=== PATIENT | female | born 1935 | race Caucasian/White ===

== ENCOUNTER 2021-10-19 11:39 | Inpatient (IN) | payer MEDICARE, BC ==
[2021-10-19] MEDS ORDERED: Fluticasone Propionate Nasal Spray 16 GM Bottle NASBOTH PRN (14:54)
[2021-10-19] MEDS ORDERED: Nitroglycerin 0.4 MG Tab.SL SL PRN (14:54)
[2021-10-19] MEDS: Digoxin 125 MCG Tab PO SCH (16:30)
[2021-10-19] MEDS: traMADol 50 MG Tab PO PRN (16:31)
[2021-10-19] MEDS: Gabapentin 300 MG Cap PO SCH ×2 (16:31→21:19)
--- NOTE | 2021-10-19 18:00 | PCM.HP.2 ---
H&P History of Present Illness - General Date of Service: 10/19/21 Admit Problem/Dx: Admission Diagnosis/Problem Admission Diagnosis/Problem Weakness Source of Information: Patient, Old Records - History of Present Illness Initial Comments - Free Text/Narative: Veronica is an 86-year-old female admitted a week ago at [facility] for CHF exacerbation, atrial fibrillation, and a NSTEMI. She also had lower extremity cellulitis,hyponatremia and SHAYAN. After treatment, she's developed physical deconditioning and is being admitted today to swing bed for rehabilitation/strengthening. She complains of aches and pains in the bones, weakness, fatigue but denies any chest pain. Secondary diagnoses include COPD, bradycardia, weight loss and presence of a Watchman left atrial device. Her creatinine on discharge was 2.47.Echo showed EF of 20%. Veronica lives at home with her . LEFT LOWER LEG Pain Score (Numeric/FACES): 8 - Related Data Allergies/Adverse Reactions: Allergies Allergy/AdvReac Type Severity Reaction Status Date / Time No Known Allergies Allergy Verified 10/19/21 15:50 Home Medications: Home Meds Acetaminophen [Tylenol Arthritis] 650 mg PO Q8H PRN 10/19/21 [History] Aspirin [[place] Aspirin] 81 mg PO DAILY 10/19/21 [History] Clobetasol [Temovate 0.05% Oint] 1 applic TOP BID 10/19/21 [History] Clopidogrel [Plavix] 75 mg PO DAILY 10/19/21 [History] Digoxin 62.5 mcg PO DAILY@1600 10/19/21 [History] Fluticasone Propionate [Flonase] 1 spray NASBOTH DAILY PRN 10/19/21 [History] Fluticasone/Salmeterol [Advair 500-50] 1 puff IH BID 10/19/21 [History] Gabapentin [Neurontin] 300 mg PO TID 10/19/21 [History] Levothyroxine 37.5 mcg PO DAILY@0600 10/19/21 [History] Metoprolol Succinate [Toprol XL] 12.5 mg PO DAILY 10/19/21 [History] Nitroglycerin 0.4 mg SL Q5M PRN 10/19/21 [History] Pantoprazole Sodium [Protonix] 40 mg PO DAILY 10/19/21 [History] Propylene Glycol/PEG 400/Pf [Systane 0.3-0.4% Eye Drop] 1 drop EYEBOTH BID 10/19/21 [History] Torsemide 20 mg PO DAILY 10/19/21 [History] Zolpidem [Ambien] 5 mg PO BEDTIME 10/19/21 [History] atorvaSTATin Calcium [Lipitor] 60 mg PO DAILY 10/19/21 [History] traMADol [Ultram] 50 mg PO BID PRN 10/19/21 [History] Past Medical History HEENT History: Reports: Cataract, Hard of Hearing, Impaired Vision, Sinusitis Cardiovascular History: Reports: Afib, Angina, Heart Failure, High Cholesterol, Hypertension, MD, SOB on Exertion, Stents, Syncope Respiratory History: Reports: Bronchitis, Recurrent, SOB, Other (See Below) Other Respiratory History: PT USES INHALERS AT HOME. Gastrointestinal History: Reports: Colon Polyp, GERD, Hemorrhoids Genitourinary History: Reports: Urinary Incontinence DRAFTER CIVIL (CAD) History: Reports: Musculoskeletal History: Reports: Arthritis, Back Pain, Chronic, Osteoarthritis, Other (See Below) Other Musculoskeletal History: COMPRESSION FRACTURE OF A VERTBREA Neurological History: Reports: Other (See Below) Other Neuro History: PT VOICED TREMORS IN BOTH HANDS AT TIMES. HAS HAD FOR YEARS. Hematologic History: Reports: Anemia, Blood Transfusion(s) - Infectious Disease History Infectious Disease History: Reports: Chicken Pox, Measles, Mumps, Shingles - Past Surgical History HEENT Surgical History: Reports: Cataract Surgery, Eye Surgery, Oral Surgery, Other (See Below) Other HEENT Surgeries/Procedures: BOTH EYES DONE WITH CATARACTS. Cardiovascular Surgical History: Reports: Coronary Artery Stent Other Cardiovascular Surgeries/Procedures: CURRENT NSTEMI 10/08/2021 Respiratory Surgical History: Reports: None GI Surgical History: Reports: Appendectomy, Colonoscopy, EGD Female Surgical History: Reports: D&C, Hysterectomy Neurological Surgical History: Reports: None Musculoskeletal Surgical History: Reports: Other (See Below) Other Musculoskeletal Surgeries/Procedures:: LARGE JOINTS OF BOTH THUMBS SURGERY DONE. WEAR THE GLOVES FOR THIS REASON. Social & Family History - Family History Family Medical History: Unobtainable - Tobacco Use Tobacco Use Status *Q: Never Tobacco User Second Hand Smoke Exposure: No - Caffeine Use Caffeine Use: Reports: Coffee, Soda - Recreational Drug Use Recreational Drug Use: No H&P Review of Systems - Review of Systems: Review Of Systems: Comprehensive ROS is negative, except as noted in HPI. Exam - Exam Exam: See Below - Vital Signs Vital Signs: Last Vital Signs Temp 97.5 F 10/19/21 14:52 Pulse 52 L 10/19/21 16:30 Resp 16 10/19/21 14:52 BP 134/52 L 10/19/21 14:52 Pulse Ox 91 L 10/19/21 14:52 Weight: 61.689 kg - Exam General: Alert, Oriented, 4 HEENT: PERRLA, Hearing Intact, Mucosa Moist & [place], Nares Patent, Normal Nasal Septum, Posterior Pharynx Clear, Conjunctiva Clear, EOMI, EACs Clear, TMs Clear Neck: Supple, Trachea Midline, 2 Lungs: Clear to Auscultation, Normal Respiratory Effort Cardiovascular: Irregular Rhythm GI/Abdominal Exam: Normal Bowel Sounds, Soft, Non-Tender, No Organomegaly, No Distention, No Abnormal Bruit, No Mass, Pelvis Stable (Female) Exam: Deferred Rectal (Female) Exam: Deferred Back Exam: Normal Inspection, Full Range of Motion, NT Extremities: Redness Skin: Warm, Dry, Intact Neurological: Cranial Nerves Intact, Reflexes Equal Bilateral Neuro Extensive - Mental Status: Alert, Oriented x3, Normal Mood/Affect, Normal Cognition Neuro Extensive - Motor, Sensory, Reflexes: CN II-XII Intact, Normal Gait, Normal Reflexes Psychiatric: Alert, Normal Affect, Normal Mood Sepsis Event Note - Evaluation Sepsis Screening Result: No Definite Risk - Focused Exam Vital Signs: Vital Signs Temp Pulse Pulse Resp BP Pulse Ox 10/19/21 16:30 52 L 10/19/21 14:52 97.5 F 61 16 134/52 L 91 L - Problem List (1) Physical deconditioning SNOMED Code(s): 10398397786636 ICD Code: R53.81 - OTHER MALAISE Status: Acute Current Visit: Yes (2) Afib SNOMED Code(s): 50019760 ICD Code: I48.91 - UNSPECIFIED ATRIAL FIBRILLATION Status: Acute Current Visit: Yes (3) Presence of Watchman left atrial appendage closure device SNOMED Code(s): 700223381, 552320058 ICD Code: Z95.818 - PRESENCE OF OTHER CARDIAC IMPLANTS AND GRAFTS Status: Acute Current Visit: Yes (4) Lower extremity ulceration SNOMED Code(s): 54617999, 691291763 ICD Code: L97.909 - NON-PRS CHRONIC ULC UNSP PRT OF UNSP LOW LEG W UNSP SEVERITY Status: Acute Current Visit: Yes (5) CHF (congestive heart failure) SNOMED Code(s): 39720640 ICD Code: I50.9 - HEART FAILURE, UNSPECIFIED Status: Acute Current Visit: Yes (6) CAD (coronary artery disease) SNOMED Code(s): 01008707 ICD Code: I25.10 - ATHSCL HEART DISEASE OF [place] CORONARY ARTERY W/O ANG PCTRS Status: Acute Current Visit: Yes (7) CKD (chronic kidney disease) SNOMED Code(s): 564149528 ICD Code: N18.9 - CHRONIC KIDNEY DISEASE, UNSPECIFIED Status: Acute Cu rrent Visit: Yes Problem List Initiated/Reviewed/Updated: Yes Orders Last 24hrs: Active Orders 24 hr Category Date Time Status Patient Status [ADT] Routine ADT 10/19/21 14:52 Active Height and Weight [RC] .TU06 Care 10/19/21 14:52 Active Oxygen Therapy [RC] PRN Care 10/19/21 14:52 Active Up With Assistance [RC] ASDIRECTED Care 10/19/21 14:51 Active Vital Signs [RC] PER UNIT ROUTINE Care 10/19/21 14:52 Active OT Evaluation and Treatment [CONS] Routine Cons 10/19/21 14:51 Active PT Evaluation and Treatment [CONS] Routine Cons 10/19/21 14:51 Active Heart Healthy Diet [DIET] Diet 10/19/21 Dinner Active Acetaminophen [Tylenol Arthritis Pain] Med 10/19/21 14:54 Active 650 mg PO Q8H PRN Aspirin Med 10/20/21 09:00 Active 81 mg PO DAILY Clobetasol [Temovate 0.05% Oint] Med 10/19/21 21:00 Active 0 gm TOP BID Clopidogrel [Plavix] Med 10/20/21 09:00 Active 75 mg PO DAILY Digoxin [Lanoxin] Med 10/19/21 16:00 Active 62.5 mcg PO DAILY@1600 Fluticasone Propionate [Flonase] Med 10/19/21 14:54 Active 0 gm NASBOTH DAILY PRN Gabapentin [Neurontin] Med 10/19/21 15:00 Active 300 mg PO TID Levothyroxine Med 10/20/21 06:00 Active 37.5 mcg PO DAILY@0600 Metoprolol Succinate [Toprol XL] Med 10/20/21 09:00 Active 12.5 mg PO DAILY Mometasone/Formoterol [Dulera 200-5 MCG] Med 10/20/21 09:00 Active 2 puff IH BID Nitroglycerin [Nitrostat] Med 10/19/21 14:54 Active 0.4 mg SL Q5M PRN PEG 400/Propylene Glycol [Systane Lubricant] Med 10/19/21 21:00 Active 0 ml EYEBOTH BID Pantoprazole [ProTONIX] Med 10/20/21 06:00 Active 40 mg PO DAILY@0600 Torsemide [Demadex] Med 10/20/21 09:00 Active 20 mg PO DAILY Zolpidem [Ambien] Med 10/19/21 21:00 Active 5 mg PO BEDTIME atorvaSTATin [Lipitor] Med 10/20/21 09:00 Active 60 mg PO DAILY traMADol [Ultram] Med 10/19/21 14:54 Active 50 mg PO BID PRN Resuscitation Status Routine Resus Stat 10/19/21 14:51 Ordered Medication Orders Acetaminophen (Acetaminophen 650 Mg Tab.Er) 650 mg PO Q8H PRN PRN Reason: Pain Aspirin (Aspirin 81 Mg Tab.Chew) 81 mg PO DAILY [facility] Atorvastatin Calcium (Atorvastatin 20 Mg Tab) 60 mg PO DAILY [facility] Clobetasol Propionate (Clobetasol 0.05% Ointment 15 Gm Tube) 0 gm TOP BID [facility] Clopidogrel Bisulfate (Clopidogrel 75 Mg Tab) 75 mg PO DAILY [facility] Digoxin (Digoxin 125 Mcg Tab) 62.5 mcg PO DAILY@1600 [facility] Last Admin: 10/19/21 16:30 Dose: 62.5 mcg Documented by: TALI Fluticasone Propionate (Fluticasone Propionate Nasal [place] 16 Gm Bottle) 0 gm NASBOTH DAILY PRN PRN Reason: Congestion Gabapentin (Gabapentin 300 Mg Cap) 300 mg PO TID [facility] Last Admin: 10/19/21 16:31 Dose: 300 mg Documented by: TALI Levothyroxine Sodium (Levothyroxine 75 Mcg Tab) 37.5 mcg PO DAILY@0600 [facility] Metoprolol Succinate (Metoprolol Succinate 25 Mg Tab.Er) 12.5 mg PO DAILY [facility] Mometasone Furoate/Formoterol Fumar (Formoterol/Mometasone 200-5 Mcg 8.8 Gm Inhaler) 2 puff IH BID [facility] Nitroglycerin (Nitroglycerin 0.4 Mg Tab.Sl) 0.4 mg SL Q5M PRN PRN Reason: Chest Pain Pantoprazole Sodium (Pantoprazole 40 Mg Tab.Cr) 40 mg PO DAILY@0600 [facility] Propylene Glycol (Peg 400/Propylene Glycol Ophth Soln 15 Ml Bottle) 0 ml EYEBOTH BID [facility] Torsemide (Torsemide 20 Mg Tab) 20 mg PO DAILY [facility] Tramadol HCl (Tramadol 50 Mg Tab) 50 mg PO BID PRN PRN Reason: severe pain Last Admin: 10/19/21 16:31 Dose: 50 mg Documented by: TALI Zolpidem Tartrate (Zolpidem 5 Mg Tab) 5 mg PO BEDTIME [facility] Assessment/Plan Comment:: Admit to swing bed with routine orders. Continue current medication regimen as dictated by discharge summary from [facility]. Consult physical and occupational therapy, with the goal for her to return to community based living.
[2021-10-19] MEDS ORDERED: Arformoterol 15 MCG/2 ML Neb Soln INH ONE (21:00)
[2021-10-19] MEDS ORDERED: Budesonide 0.5 MG/2 ML Neb Susp INH ONE (21:00)
[2021-10-19] MEDS: Clobetasol 0.05% Ointment 15 GM Tube TOP SCH (21:17)
[2021-10-19] MEDS: PEG 400/Propylene Glycol Ophth Soln 15 ML Bottle EYEBOTH SCH (21:18)
[2021-10-19] MEDS: Zolpidem 5 MG Tab PO SCH (21:27)
[2021-10-20] MEDS: Pantoprazole 40 MG Tab.CR PO SCH (05:59)
[2021-10-20] MEDS: Levothyroxine 75 MCG Tab PO SCH (06:03)
[2021-10-20] MEDS: traMADol 50 MG Tab PO PRN ×2 (06:11→14:51)
[2021-10-20] MEDS: Aspirin 81 MG Tab.Chew PO SCH (08:00)
[2021-10-20] MEDS: PEG 400/Propylene Glycol Ophth Soln 15 ML Bottle EYEBOTH SCH ×2 (08:00→20:38)
[2021-10-20] MEDS: Metoprolol Succinate 25 MG Tab.ER PO SCH (08:01)
[2021-10-20] MEDS: Torsemide 20 MG Tab PO SCH (08:01)
[2021-10-20] MEDS: atorvaSTATin 20 MG Tab PO SCH (08:02)
[2021-10-20] MEDS: Clobetasol 0.05% Ointment 15 GM Tube TOP SCH ×2 (08:03→20:39)
[2021-10-20] MEDS: Clopidogrel 75 MG Tab PO SCH (08:03)
[2021-10-20] MEDS: Gabapentin 300 MG Cap PO SCH ×3 (08:50→20:48)
[2021-10-20] MEDS: Formoterol/Mometasone 200-5 MCG 8.8 GM Inhaler IH SCH ×2 (10:59→20:35)
[2021-10-20] MEDS: Acetaminophen 650 MG Tab.ER PO PRN (11:03)
[2021-10-20] MEDS: Digoxin 125 MCG Tab PO SCH (18:34)
[2021-10-20] MEDS: Zolpidem 5 MG Tab PO SCH (20:49)
[2021-10-21] MEDS: Levothyroxine 75 MCG Tab PO SCH (05:16)
[2021-10-21] MEDS: Pantoprazole 40 MG Tab.CR PO SCH (05:16)
[2021-10-21] MEDS: Clopidogrel 75 MG Tab PO SCH (09:23)
[2021-10-21] MEDS: Formoterol/Mometasone 200-5 MCG 8.8 GM Inhaler IH SCH ×2 (09:23→20:48)
[2021-10-21] MEDS: Aspirin 81 MG Tab.Chew PO SCH (09:23)
[2021-10-21] MEDS: Gabapentin 300 MG Cap PO SCH ×3 (09:23→20:48)
[2021-10-21] MEDS: Clobetasol 0.05% Ointment 15 GM Tube TOP SCH ×2 (09:23→20:48)
[2021-10-21] MEDS: atorvaSTATin 20 MG Tab PO SCH (09:23)
[2021-10-21] MEDS: PEG 400/Propylene Glycol Ophth Soln 15 ML Bottle EYEBOTH SCH ×2 (09:23→20:48)
[2021-10-21] MEDS: Torsemide 20 MG Tab PO SCH (09:23)
[2021-10-21] MEDS: Metoprolol Succinate 25 MG Tab.ER PO SCH (09:24)
[2021-10-21] MEDS: Digoxin 125 MCG Tab PO SCH (16:53)
[2021-10-21] MEDS: Zolpidem 5 MG Tab PO SCH (20:48)
[2021-10-22] MEDS: Pantoprazole 40 MG Tab.CR PO SCH (05:30)
[2021-10-22] MEDS: Levothyroxine 75 MCG Tab PO SCH (05:30)
[2021-10-22] MEDS: atorvaSTATin 20 MG Tab PO SCH (09:02)
[2021-10-22] MEDS: Metoprolol Succinate 25 MG Tab.ER PO SCH (09:19)
[2021-10-22] MEDS: Torsemide 20 MG Tab PO SCH (09:20)
[2021-10-22] MEDS: Aspirin 81 MG Tab.Chew PO SCH (09:20)
[2021-10-22] MEDS: Clopidogrel 75 MG Tab PO SCH (09:21)
[2021-10-22] MEDS: Formoterol/Mometasone 200-5 MCG 8.8 GM Inhaler IH SCH ×2 (09:22→20:44)
[2021-10-22] MEDS: Clobetasol 0.05% Ointment 15 GM Tube TOP SCH ×2 (09:22→20:44)
[2021-10-22] MEDS: PEG 400/Propylene Glycol Ophth Soln 15 ML Bottle EYEBOTH SCH ×2 (09:22→20:45)
[2021-10-22] MEDS: Gabapentin 300 MG Cap PO SCH ×3 (09:25→20:44)
[2021-10-22] MEDS: Acetaminophen 650 MG Tab.ER PO PRN ×2 (14:55→23:47)
[2021-10-22] MEDS: Digoxin 125 MCG Tab PO SCH (16:37)
[2021-10-22] MEDS: Zolpidem 5 MG Tab PO SCH (20:44)
[2021-10-23] MEDS: Levothyroxine 75 MCG Tab PO SCH (05:30)
[2021-10-23] MEDS: Pantoprazole 40 MG Tab.CR PO SCH (05:30)
[2021-10-23] MEDS: traMADol 50 MG Tab PO PRN (05:34)
[2021-10-23] MEDS: Torsemide 20 MG Tab PO SCH (09:25)
[2021-10-23] MEDS: Formoterol/Mometasone 200-5 MCG 8.8 GM Inhaler IH SCH ×2 (09:25→21:31)
[2021-10-23] MEDS: Aspirin 81 MG Tab.Chew PO SCH (09:25)
[2021-10-23] MEDS: atorvaSTATin 20 MG Tab PO SCH (09:26)
[2021-10-23] MEDS: Clopidogrel 75 MG Tab PO SCH (09:26)
[2021-10-23] MEDS: PEG 400/Propylene Glycol Ophth Soln 15 ML Bottle EYEBOTH SCH ×2 (09:27→21:31)
[2021-10-23] MEDS: Clobetasol 0.05% Ointment 15 GM Tube TOP SCH ×2 (09:28→20:28)
[2021-10-23] MEDS: Gabapentin 300 MG Cap PO SCH ×3 (09:42→21:32)
[2021-10-23] MEDS: Metoprolol Succinate 25 MG Tab.ER PO SCH (10:03)
[2021-10-23] MEDS: Digoxin 125 MCG Tab PO SCH (16:57)
[2021-10-23] MEDS: Zolpidem 5 MG Tab PO SCH (21:31)
[2021-10-23] MEDS: Acetaminophen 650 MG Tab.ER PO PRN (21:32)
[2021-10-24] MEDS: Pantoprazole 40 MG Tab.CR PO SCH (05:23)
[2021-10-24] MEDS: Levothyroxine 75 MCG Tab PO SCH (05:23)
--- NOTE | 2021-10-24 08:34 | PCM.PN ---
- General Info Date of Service: 10/24/21 Admission Dx/Problem (Free Text): Patient without complaints. She denies fevers, chills, chest pain. Has a little bit of leg swelling which is getting better. - Patient Data Vitals - Most Recent: Last Vital Signs Temp 98 F 10/23/21 08:00 Pulse 64 10/23/21 16:57 Resp 17 10/23/21 08:00 BP 114/48 L 10/23/21 08:00 Pulse Ox 94 L 10/23/21 08:00 Weight - Most Recent: 140 lb 6.4 oz Med Orders - Current: Current Medications Acetaminophen (Acetaminophen 650 Mg Tab.Er) 650 mg PO Q8H PRN PRN Reason: Pain Last Admin: 10/23/21 21:32 Dose: 650 mg Documented by: Aspirin (Aspirin 81 Mg Tab.Chew) 81 mg PO DAILY [facility] Last Admin: 10/23/21 09:25 Dose: 81 mg Documented by: Atorvastatin Calcium (Atorvastatin 20 Mg Tab) 60 mg PO DAILY [facility] Last Admin: 10/23/21 09:26 Dose: 60 mg Documented by: Clobetasol Propionate (Clobetasol 0.05% Ointment 15 Gm Tube) 0 gm TOP BID [facility] Last Admin: 10/23/21 20:28 Dose: 1 applic Documented by: Clopidogrel Bisulfate (Clopidogrel 75 Mg Tab) 75 mg PO DAILY [facility] Last Admin: 10/23/21 09:26 Dose: 75 mg Documented by: Digoxin (Digoxin 125 Mcg Tab) 62.5 mcg PO DAILY@1600 [facility] Last Admin: 10/23/21 16:57 Dose: 62.5 mcg Documented by: Fluticasone Propionate (Fluticasone Propionate Nasal [place] 16 Gm Bottle) 0 gm NASBOTH DAILY PRN PRN Reason: Congestion Gabapentin (Gabapentin 300 Mg Cap) 300 mg PO TID [facility] Last Admin: 10/23/21 21:32 Dose: 300 mg Documented by: Levothyroxine Sodium (Levothyroxine 75 Mcg Tab) 37.5 mcg PO DAILY@0600 [facility] Last Admin: 10/24/21 05:23 Dose: 37.5 mcg Documented by: Metoprolol Succinate (Metoprolol Succinate 25 Mg Tab.Er) 12.5 mg PO DAILY [facility] Last Admin: 10/23/21 10:03 Dose: Not Given Documented by: Mometasone Furoate/Formoterol Fumar (Formoterol/Mometasone 200-5 Mcg 8.8 Gm Inhaler) 2 puff IH BID [facility] Last Admin: 10/23/21 21:31 Dose: 2 puff Documented by: Nitroglycerin (Nitroglycerin 0.4 Mg Tab.Sl) 0.4 mg SL Q5M PRN PRN Reason: Chest Pain Pantoprazole Sodium (Pantoprazole 40 Mg Tab.Cr) 40 mg PO DAILY@0600 [facility] Last Admin: 10/24/21 05:23 Dose: 40 mg Documented by: Propylene Glycol (Peg 400/Propylene Glycol Ophth Soln 15 Ml Bottle) 0 ml EYEBOTH BID [facility] Last Admin: 10/23/21 21:31 Dose: 1 drop Documented by: Torsemide (Torsemide 20 Mg Tab) 20 mg PO DAILY [facility] Last Admin: 10/23/21 09:25 Dose: 20 mg Documented by: Tramadol HCl (Tramadol 50 Mg Tab) 50 mg PO BID PRN PRN Reason: severe pain Last Admin: 10/23/21 05:34 Dose: 50 mg Documented by: Zolpidem Tartrate (Zolpidem 5 Mg Tab) 5 mg PO BEDTIME [facility] Last Admin: 10/23/21 21:31 Dose: 5 mg Documented by: - Exam General: Alert, Oriented, Cooperative Neck: Supple Lungs: Clear to Auscultation, Normal Respiratory Effort Cardiovascular: Regular Rate, Regular Rhythm, Murmurs Extremities: Pedal Edema Sepsis Event Note - Evaluation Sepsis Screening Result: No Definite Risk - Problem List & Annotations (1) Afib SNOMED Code(s): 81563804 Code(s): I48.91 - UNSPECIFIED ATRIAL FIBRILLATION Status: Acute Current Visit: Yes (2) CAD (coronary artery disease) SNOMED Code(s): 17852150 Code(s): I25.10 - ATHSCL HEART DISEASE OF [place] CORONARY ARTERY W/O ANG PCTRS Status: Acute Current Visit: Yes (3) CHF (congestive heart failure) SNOMED Code(s): 56664485 Code(s): I50.9 - HEART FAILURE, UNSPECIFIED Status: Acute Current Visit: Yes (4) CKD (chronic kidney disease) SNOMED Code(s): 808517594 Code(s): N18.9 - CHRONIC KIDNEY DISEASE, UNSPECIFIED Status: Acute Current Visit: Yes (5) Lower extremity ulceration SNOMED Code(s): 68833180, 444287188 Code(s): L97.909 - NON-PRS CHRONIC ULC UNSP PRT OF UNSP LOW LEG W UNSP SEVERITY Status: Acute Current Visit: Yes (6) Physical deconditioning SNOMED Code(s): 74501903563479 Code(s): R53.81 - OTHER MALAISE Status: Acute Current Visit: Yes (7) Presence of Watchman left atrial appendage closure device SNOMED Code(s): 460475819, 736101901 Code(s): Z95.818 - PRESENCE OF OTHER CARDIAC IMPLANTS AND GRAFTS Status: Acute Current Visit: Yes - Problem List Review Problem List Initiated/Reviewed/Updated: Yes - Plan Plan:: Continue current care.
[2021-10-24] MEDS: Gabapentin 300 MG Cap PO SCH ×3 (09:18→21:46)
[2021-10-24] MEDS: traMADol 50 MG Tab PO PRN ×2 (09:26→21:45)
[2021-10-24] MEDS: Aspirin 81 MG Tab.Chew PO SCH (09:28)
[2021-10-24] MEDS: Formoterol/Mometasone 200-5 MCG 8.8 GM Inhaler IH SCH ×2 (09:28→21:46)
[2021-10-24] MEDS: PEG 400/Propylene Glycol Ophth Soln 15 ML Bottle EYEBOTH SCH ×2 (09:28→21:47)
[2021-10-24] MEDS: Torsemide 20 MG Tab PO SCH (09:29)
[2021-10-24] MEDS: atorvaSTATin 20 MG Tab PO SCH (09:29)
[2021-10-24] MEDS: Clopidogrel 75 MG Tab PO SCH (09:29)
[2021-10-24] MEDS: Metoprolol Succinate 25 MG Tab.ER PO SCH (09:30)
[2021-10-24] MEDS: Clobetasol 0.05% Ointment 15 GM Tube TOP SCH ×2 (09:31→21:47)
[2021-10-24] MEDS: Digoxin 125 MCG Tab PO SCH (17:49)
[2021-10-24] MEDS: Zolpidem 5 MG Tab PO SCH (21:46)
[2021-10-25] MEDS: Levothyroxine 75 MCG Tab PO SCH (05:22)
[2021-10-25] MEDS: Pantoprazole 40 MG Tab.CR PO SCH (05:22)
[2021-10-25] MEDS: Aspirin 81 MG Tab.Chew PO SCH (08:48)
[2021-10-25] MEDS: Formoterol/Mometasone 200-5 MCG 8.8 GM Inhaler IH SCH ×2 (08:49→21:52)
[2021-10-25] MEDS: atorvaSTATin 20 MG Tab PO SCH (08:49)
[2021-10-25] MEDS: Metoprolol Succinate 25 MG Tab.ER PO SCH (08:50)
[2021-10-25] MEDS: Clobetasol 0.05% Ointment 15 GM Tube TOP SCH ×2 (08:50→22:34)
[2021-10-25] MEDS: PEG 400/Propylene Glycol Ophth Soln 15 ML Bottle EYEBOTH SCH ×2 (08:50→21:52)
[2021-10-25] MEDS: Torsemide 20 MG Tab PO SCH (08:51)
[2021-10-25] MEDS: Clopidogrel 75 MG Tab PO SCH (08:51)
[2021-10-25] MEDS: Gabapentin 300 MG Cap PO SCH ×3 (08:54→22:11)
[2021-10-25] MEDS: Digoxin 125 MCG Tab PO SCH (17:32)
[2021-10-25] MEDS: Zolpidem 5 MG Tab PO SCH (22:11)
[2021-10-25] MEDS: Acetaminophen 650 MG Tab.ER PO PRN (22:31)
[2021-10-26] MEDS: Pantoprazole 40 MG Tab.CR PO SCH (06:14)
[2021-10-26] MEDS: Levothyroxine 75 MCG Tab PO SCH (06:14)
[2021-10-26] MEDS: Gabapentin 300 MG Cap PO SCH ×3 (09:06→20:23)
[2021-10-26] MEDS: PEG 400/Propylene Glycol Ophth Soln 15 ML Bottle EYEBOTH SCH ×2 (09:06→20:23)
[2021-10-26] MEDS: Formoterol/Mometasone 200-5 MCG 8.8 GM Inhaler IH SCH ×2 (09:06→20:23)
[2021-10-26] MEDS: Torsemide 20 MG Tab PO SCH (09:06)
[2021-10-26] MEDS: Clopidogrel 75 MG Tab PO SCH (09:06)
[2021-10-26] MEDS: Aspirin 81 MG Tab.Chew PO SCH (09:06)
[2021-10-26] MEDS: atorvaSTATin 20 MG Tab PO SCH (09:06)
[2021-10-26] MEDS: Metoprolol Succinate 25 MG Tab.ER PO SCH (09:07)
[2021-10-26] MEDS: traMADol 50 MG Tab PO PRN (09:08)
[2021-10-26] MEDS: Clobetasol 0.05% Ointment 15 GM Tube TOP SCH ×2 (12:05→20:24)
[2021-10-26] MEDS: Digoxin 125 MCG Tab PO SCH (15:36)
[2021-10-26] MEDS: Acetaminophen 650 MG Tab.ER PO PRN (20:23)
[2021-10-26] MEDS: Zolpidem 5 MG Tab PO SCH (20:23)
[2021-10-27] MEDS: Pantoprazole 40 MG Tab.CR PO SCH (06:21)
[2021-10-27] MEDS: Levothyroxine 75 MCG Tab PO SCH (06:21)
[2021-10-27] MEDS: atorvaSTATin 20 MG Tab PO SCH (09:03)
[2021-10-27] MEDS: Formoterol/Mometasone 200-5 MCG 8.8 GM Inhaler IH SCH ×3 (09:03→20:20)
[2021-10-27] MEDS: Clopidogrel 75 MG Tab PO SCH (09:04)
[2021-10-27] MEDS: Aspirin 81 MG Tab.Chew PO SCH (09:04)
[2021-10-27] MEDS: PEG 400/Propylene Glycol Ophth Soln 15 ML Bottle EYEBOTH SCH ×2 (09:04→20:21)
[2021-10-27] MEDS: Torsemide 20 MG Tab PO SCH (09:04)
[2021-10-27] MEDS: Clobetasol 0.05% Ointment 15 GM Tube TOP SCH ×2 (09:05→20:23)
[2021-10-27] MEDS: Acetaminophen 650 MG Tab.ER PO PRN (09:12)
[2021-10-27] MEDS: Gabapentin 300 MG Cap PO SCH ×3 (09:12→20:21)
[2021-10-27] MEDS: Metoprolol Succinate 25 MG Tab.ER PO SCH (09:29)
[2021-10-27] MEDS: Digoxin 125 MCG Tab PO SCH (17:34)
[2021-10-27] MEDS: Zolpidem 5 MG Tab PO SCH (20:20)
[2021-10-28] MEDS: Levothyroxine 75 MCG Tab PO SCH (06:10)
[2021-10-28] MEDS: Pantoprazole 40 MG Tab.CR PO SCH (06:11)
--- NOTE | 2021-10-28 09:00 | PCM.PN ---
- General Info Date of Service: 10/28/21 Admission Dx/Problem (Free Text): Patient has no chest pain, shortness breath, fevers, chills. She has had no dizziness or palpitations. Still has the ulcers on her leg. Wondering who will address them when she is at her house. - Patient Data Vitals - Most Recent: Last Vital Signs Temp 98.1 F 10/27/21 08:00 Pulse 49 L 10/27/21 17:34 Resp 16 10/27/21 08:00 BP 143/52 H 10/27/21 09:29 Pulse Ox 95 10/27/21 08:00 Weight - Most Recent: 140 lb 6.4 oz Med Orders - Current: Current Medications Acetaminophen (Acetaminophen 650 Mg Tab.Er) 650 mg PO Q8H PRN PRN Reason: Pain Last Admin: 10/27/21 09:12 Dose: 650 mg Documented by: Aspirin (Aspirin 81 Mg Tab.Chew) 81 mg PO DAILY [facility] Last Admin: 10/27/21 09:04 Dose: 81 mg Documented by: Atorvastatin Calcium (Atorvastatin 20 Mg Tab) 60 mg PO DAILY [facility] Last Admin: 10/27/21 09:03 Dose: 60 mg Documented by: Clobetasol Propionate (Clobetasol 0.05% Ointment 15 Gm Tube) 0 gm TOP BID [facility] Last Admin: 10/27/21 20:23 Dose: 1 applic Documented by: Clopidogrel Bisulfate (Clopidogrel 75 Mg Tab) 75 mg PO DAILY [facility] Last Admin: 10/27/21 09:04 Dose: 75 mg Documented by: Digoxin (Digoxin 125 Mcg Tab) 62.5 mcg PO DAILY@1600 [facility] Last Admin: 10/27/21 17:34 Dose: Not Given Documented by: Fluticasone Propionate (Fluticasone Propionate Nasal [place] 16 Gm Bottle) 0 gm NASBOTH DAILY PRN PRN Reason: Congestion Gabapentin (Gabapentin 300 Mg Cap) 300 mg PO TID [facility] Last Admin: 10/27/21 20:21 Dose: 300 mg Documented by: Levothyroxine Sodium (Levothyroxine 75 Mcg Tab) 37.5 mcg PO DAILY@0600 [facility] Last Admin: 10/28/21 06:10 Dose: 37.5 mcg Documented by: Mometasone Furoate/Formoterol Fumar (Formoterol/Mometasone 200-5 Mcg 8.8 Gm Inhaler) 2 puff IH BID [facility] Last Admin: 10/27/21 20:20 Dose: Not Given Documented by: Nitroglycerin (Nitroglycerin 0.4 Mg Tab.Sl) 0.4 mg SL Q5M PRN PRN Reason: Chest Pain Pantoprazole Sodium (Pantoprazole 40 Mg Tab.Cr) 40 mg PO DAILY@0600 [facility] Last Admin: 10/28/21 06:11 Dose: 40 mg Documented by: Propylene Glycol (Peg 400/Propylene Glycol Ophth Soln 15 Ml Bottle) 0 ml EYEBOTH BID [facility] Last Admin: 10/27/21 20:21 Dose: 1 drop Documented by: Torsemide (Torsemide 20 Mg Tab) 20 mg PO DAILY [facility] Last Admin: 10/27/21 09:04 Dose: 20 mg Documented by: Tramadol HCl (Tramadol 50 Mg Tab) 50 mg PO BID PRN PRN Reason: severe pain Last Admin: 10/26/21 09:08 Dose: 50 mg Documented by: Zolpidem Tartrate (Zolpidem 5 Mg Tab) 5 mg PO BEDTIME [facility] Last Admin: 10/27/21 20:20 Dose: 5 mg Documented by: Discontinued Medications Metoprolol Succinate (Metoprolol Succinate 25 Mg Tab.Er) 12.5 mg PO DAILY [facility] Last Admin: 10/27/21 09:29 Dose: 12.5 mg Documented by: - Exam General: Alert, Oriented Lungs: Normal Respiratory Effort Sepsis Event Note - Evaluation Sepsis Screening Result: No Definite Risk - Problem List & Annotations (1) Afib SNOMED Code(s): 26143581 Code(s): I48.91 - UNSPECIFIED ATRIAL FIBRILLATION Status: Acute Current Visit: Yes (2) CAD (coronary artery disease) SNOMED Code(s): 47915600 Code(s): I25.10 - ATHSCL HEART DISEASE OF [place] CORONARY ARTERY W/O ANG PCTRS Status: Acute Current Visit: Yes (3) CHF (congestive heart failure) SNOMED Code(s): 12571729 Code(s): I50.9 - HEART FAILURE, UNSPECIFIED Status: Acute Current Visit: Yes (4) CKD (chronic kidney disease) SNOMED Code(s): 305026641 Code(s): N18.9 - CHRONIC KIDNEY DISEASE, UNSPECIFIED Status: Acute Current Visit: Yes (5) Lower extremity ulceration SNOMED Code(s): 23172835, 926305836 Code(s): L97.909 - NON-PRS CHRONIC ULC UNSP PRT OF UNSP LOW LEG W UNSP SEVERITY Status: Acute Current Visit: Yes (6) Physical deconditioning SNOMED Code(s): 11636479819012 Code(s): R53.81 - OTHER [place]AISE Status: Acute Current Visit: Yes (7) Presence of Watchman left atrial appendage closure device SNOMED Code(s): 053529363, 463020736 Code(s): Z95.818 - PRESENCE OF OTHER CARDIAC IMPLANTS AND GRAFTS Status: Acute Current Visit: Yes - Problem List Review Problem List Initiated/Reviewed/Updated: Yes - Plan Plan:: Discharged to home on home health, PT/OT. Reassured her that home health would sure how to dress her wounds.
[2021-10-28] MEDS: Aspirin 81 MG Tab.Chew PO SCH (09:03)
[2021-10-28] MEDS: Torsemide 20 MG Tab PO SCH (09:03)
[2021-10-28] MEDS: atorvaSTATin 20 MG Tab PO SCH (09:04)
[2021-10-28] MEDS: PEG 400/Propylene Glycol Ophth Soln 15 ML Bottle EYEBOTH SCH (09:04)
[2021-10-28] MEDS: Clopidogrel 75 MG Tab PO SCH (09:04)
[2021-10-28] MEDS: Gabapentin 300 MG Cap PO SCH (09:04)
[2021-10-28] MEDS: Clobetasol 0.05% Ointment 15 GM Tube TOP SCH (09:04)
[2021-10-28] MEDS: Formoterol/Mometasone 200-5 MCG 8.8 GM Inhaler IH SCH (09:04)
--- NOTE | 2021-10-28 09:06 | PCM.DCSUM1 ---
Discharge Summary - Hospital Course Free Text/Narrative:: Hospital course-patient was transferred here for swing bed, PT/OT and wound care. Patient did really well. Use some tramadol occasionally for her pain in her wounds. She had no problems with shortness of breath, chest pain or tachycardia from her A. fib. Her pulse is actually running low so we decreased her Toprol and continue to run low at 49-low 50s. So we will stop her Toprol for now continue digoxin for her A. fib. Patient will be discharged on home health with PT/OT and wound care. Brief History: Veronica is an 86-year-old female admitted a week ago at [facility] for CHF exacerbation, atrial fibrillation, and a NSTEMI. She also had lower extremity cellulitis,hyponatremia and SHAYAN. After treatment, she's developed physical deconditioning and is being admitted today to swing bed for rehabilitation/strengthening. She complains of aches and pains in the bones, weakness, fatigue but denies any chest pain. Secondary diagnoses include COPD, bradycardia, weight loss and presence of a Watchman left atrial device. Her crea tinine on discharge was 2.47.Echo showed EF of 20%. Veronica lives at home with her . Diagnosis: Stroke: No - Discharge Data Discharge Date: 10/28/21 Discharge Disposition: Home, W Home Health Agency 06 Condition: Good - Referral to Home Health Date of Face to Face Encounter: 10/28/21 Reason for Homebound Status: 1. Weakness, ulcers on the leg, ambulation issues, Needs assist to get in the car and assist to walk. Primary Care Physician: PCP Not In Area Skilled Need: Ambulation, ADLs, home safety, strengthening, medication management, wound care - Discharge Diagnosis/Problem(s) (1) Afib SNOMED Code(s): 75503723 ICD Code: I48.91 - UNSPECIFIED ATRIAL FIBRILLATION Status: Acute Current Visit: Yes (2) CAD (coronary artery disease) SNOMED Code(s): 05577626 ICD Code: I25.10 - ATHSCL HEART DISEASE OF [place] CORONARY ARTERY W/O ANG PCTRS Status: Acute Current Visit: Yes (3) CHF (congestive heart failure) SNOMED Code(s): 23877742 ICD Code: I50.9 - HEART FAILURE, UNSPECIFIED Status: Acute Current Visit: Yes (4) CKD (chronic kidney disease) SNOMED Code(s): 597078584 ICD Code: N18.9 - CHRONIC KIDNEY DISEASE, UNSPECIFIED Status: Acute Current Visit: Yes (5) Lower extremity ulceration SNOMED Code(s): 13299135, 951088337 ICD Code: L97.909 - NON-PRS CHRONIC ULC UNSP PRT OF UNSP LOW LEG W UNSP SEVERITY Status: Acute Current Visit: Yes (6) Physical deconditioning SNOMED Code(s): 16323448468813 ICD Code: R53.81 - OTHER MALAISE Status: Acute Current Visit: Yes (7) Presence of Watchman left atrial appendage closure device SNOMED Code(s): 039805414, 741883546 ICD Code: Z95.818 - PRESENCE OF OTHER CARDIAC IMPLANTS AND GRAFTS Status: Acute Current Visit: Yes - Patient Summary/Data Consults: Consultations 10/19/21 14:51 OT Evaluation and Treatment [CONS] Routine Please Evaluate and Treat. OT Reason for Consult: ADL's This query below is only for informational purposes and is not editable. PT Evaluation and Treatment [CONS] Routine Please Evaluate and Treat. PT Reason for Consult: Ambulation This query below is only for informational purposes and is not editable. - Patient Instructions Diet: Heart Healthy Diet Activity: As Tolerated Driving: Do Not Drive Showering/Bathing: May Shower Other/Special Instructions: 1. Home health/PT/OT. 2. Wound care per home health. 3. Recheck with her primary provider Dr. Ferris in 1 week. . Due to pulse being low continue digoxin and stop Toprol-XL. - Discharge Plan Prescriptions/Med Rec: traMADol [Ultram] 50 mg PO BID PRN #30 PRN Reason: severe pain Home Medications: Home Meds Acetaminophen [Tylenol Arthritis] 650 mg PO Q8H PRN 10/19/21 [History] Aspirin [Burtrum Aspirin] 81 mg PO DAILY 10/19/21 [History] Clobetasol [Temovate 0.05% Oint] 1 applic TOP BID 10/19/21 [History] Clopidogrel [Plavix] 75 mg PO DAILY 10/19/21 [History] Digoxin 62.5 mcg PO DAILY@1600 10/19/21 [History] Fluticasone Propionate [Flonase] 1 spray NASBOTH DAILY PRN 10/19/21 [History] Fluticasone/Salmeterol [Advair 500-50] 1 puff IH BID 10/19/21 [History] Gabapentin [Neurontin] 300 mg PO TID 10/19/21 [History] Levothyroxine 37.5 mcg PO DAILY@0600 10/19/21 [History] Nitroglycerin 0.4 mg SL Q5M PRN 10/19/21 [History] Pantoprazole Sodium [Protonix] 40 mg PO DAILY 10/19/21 [History] Propylene Glycol/PEG 400/Pf [Systane 0.3-0.4% Eye Drop] 1 drop EYEBOTH BID 10/19/21 [History] Torsemide 20 mg PO DAILY 10/19/21 [History] Zolpidem [Ambien] 5 mg PO BEDTIME 10/19/21 [History] atorvaSTATin Calcium [Lipitor] 60 mg PO DAILY 10/19/21 [History] traMADol [Ultram] 50 mg PO BID PRN #30 10/28/21 [Rx] Patient Handouts: Heart Attack, [id number], Heart Failure, Diagnosis, [id number], Fall Prevention in Hospitals, Adult, Atrial Fibrillation, [id number], Venous Thromboembolism Prevention - Discharge Summary/Plan Comment DC Time >30 min.: No Total # of Minutes for Discharge Time: 10 minutes - Patient Data Vitals - Most Recent: Last Vital Signs Temp 98.1 F 10/27/21 08:00 Pulse 49 L 10/27/21 17:34 Resp 16 10/27/21 08:00 BP 143/52 H 10/27/21 09:29 Pulse Ox 95 10/27/21 08:00 Weight - Most Recent: 140 lb 6.4 oz Med Orders - Current: Current Medications Acetaminophen (Acetaminophen 650 Mg Tab.Er) 650 mg PO Q8H PRN PRN Reason: Pain Last Admin: 10/27/21 09:12 Dose: 650 mg Documented by: Aspirin (Aspirin 81 Mg Tab.Chew) 81 mg PO DAILY [facility] Last Admin: 10/27/21 09:04 Dose: 81 mg Documented by: Atorvastatin Calcium (Atorvastatin 20 Mg Tab) 60 mg PO DAILY LAURA Last Admin: 10/27/21 09:03 Dose: 60 mg Documented by: Clobetasol Propionate (Clobetasol 0.05% Ointment 15 Gm Tube) 0 gm TOP BID [facility] Last Admin: 10/27/21 20:23 Dose: 1 applic Documented by: Clopidogrel Bisulfate (Clopidogrel 75 Mg Tab) 75 mg PO DAILY [facility] Last Admin: 10/27/21 09:04 Dose: 75 mg Documented by: Digoxin (Digoxin 125 Mcg Tab) 62.5 mcg PO DAILY@1600 [facility] Last Admin: 10/27/21 17:34 Dose: Not Given Documented by: Fluticasone Propionate (Fluticasone Propionate Nasal [place] 16 Gm Bottle) 0 gm NASBOTH DAILY PRN PRN Reason: Congestion Gabapentin (Gabapentin 300 Mg Cap) 300 mg PO TID [facility] Last Admin: 10/27/21 20:21 Dose: 300 mg Documented by: Levothyroxine Sodium (Levothyroxine 75 Mcg Tab) 37.5 mcg PO DAILY@0600 [facility] Last Admin: 10/28/21 06:10 Dose: 37.5 mcg Documented by: Mometasone Furoate/Formoterol Fumar (Formoterol/Mometasone 200-5 Mcg 8.8 Gm Inhaler) 2 puff IH BID [facility] Last Admin: 10/27/21 20:20 Dose: Not Given Documented by: Nitroglycerin (Nitroglycerin 0.4 Mg Tab.Sl) 0.4 mg SL Q5M PRN PRN Reason: Chest Pain Pantoprazole Sodium (Pantoprazole 40 Mg Tab.Cr) 40 mg PO DAILY@0600 [facility] Last Admin: 10/28/21 06:11 Dose: 40 mg Documented by: Propylene Glycol (Peg 400/Propylene Glycol Ophth Soln 15 Ml Bottle) 0 ml EYEBOTH BID [facility] Last Admin: 10/27/21 20:21 Dose: 1 drop Documented by: Torsemide (Torsemide 20 Mg Tab) 20 mg PO DAILY [facility] Last Admin: 10/27/21 09:04 Dose: 20 mg Documented by: Tramadol HCl (Tramadol 50 Mg Tab) 50 mg PO BID PRN PRN Reason: severe pain Last Admin: 10/26/21 09:08 Dose: 50 mg Documented by: Zolpidem Tartrate (Zolpidem 5 Mg Tab) 5 mg PO BEDTIME [facility] Last Admin: 10/27/21 20:20 Dose: 5 mg Documented by: Discontinued Medications Metoprolol Succinate (Metoprolol Succinate 25 Mg Tab.Er) 12.5 mg PO DAILY LAURA Last Admin: 10/27/21 09:29 Dose: 12.5 mg Documented by:
[2021-10-28] MEDS ORDERED: Loperamide 2 MG Cap PO PRN (09:26)
[2021-10-28 11:15] VITALS: BP 149/54; PULSE 67
== END 2021-10-28 13:30 | disposition home health service (06) | DRG 947 ==
LOC: FB.MS 13:00
PROVIDERS: ADMIT Family Medicine; ATTEND Family Medicine
DX: R53.81 Other malaise (principal); I21.4 Non-ST elevation (NSTEMI) myocardial infarction; I13.0 Hypertensive heart and chronic kidney disease with heart failure and stage 1 through stage 4 chronic kidney disease, or unspecified chronic kidney disease; I50.22 Chronic systolic (congestive) heart failure; L97.929 Non-pressure chronic ulcer of unspecified part of left lower leg with unspecified severity; I48.91 Unspecified atrial fibrillation; I25.10 Atherosclerotic heart disease of native coronary artery without angina pectoris; N18.9 Chronic kidney disease, unspecified; J44.9 Chronic obstructive pulmonary disease, unspecified; H91.90 Unspecified hearing loss, unspecified ear; H54.7 Unspecified visual loss; M54.9 Dorsalgia, unspecified; G89.29 Other chronic pain; M19.90 Unspecified osteoarthritis, unspecified site; E78.00 Pure hypercholesterolemia, unspecified; K21.9 Gastro-esophageal reflux disease without esophagitis; R32 Unspecified urinary incontinence; D63.1 Anemia in chronic kidney disease; Z95.818 Presence of other cardiac implants and grafts; Z79.82 Long term (current) use of aspirin; Z79.890 Hormone replacement therapy; Z79.899 Other long term (current) drug therapy; Z98.41 Cataract extraction status, right eye; Z98.42 Cataract extraction status, left eye; Z90.49 Acquired absence of other specified parts of digestive tract; Z90.710 Acquired absence of both cervix and uterus
CPT/HCPCS: 97116-GP; 97161-GP; 97165-GO; 97530-GO; 97530-GP; 97535-GO; A9270-GY